=== PATIENT | male | born 1995 | race Caucasian/White ===

== ENCOUNTER → 2019-08-17 16:54 | Outpatient (CLI) | payer OTHER, SELFPAY ==
--- NOTE | 2019-08-17 | DI.MRI.S_ITS ---
PROCEDURE: MR KNEE LT WO CON INDICATIONS: PAIN IN LEFT KNEE TECHNIQUE: Noncontrast sagittal PD fast spin echo and T2 fast spin echo with fat saturation, sagittal 3-D FLASH with fat saturation; coronal T1 spin echo and PD fast spin echo with fat saturation, and axial PD fast spin echo with fat saturation through the knee. COMPARISON: None. FINDINGS: Image quality: Excellent. Menisci: There is intrasubstance degeneration involving the posterior horn of the medial meniscus, not extending to the articular surface. The lateral meniscus appears intact. Cruciate ligaments: Patient is status post anterior cruciate ligament repair. The ACL graft appears abnormal distally, consistent with full-thickness tear. There is mild widening of the femoral and tibial tunnels with tunnel cysts. The posterior cruciate ligament appears intact. Medial structures: Mild thickening of medial collateral ligament is likely sequelae of old injury. No acute MCL tear or sprain. The semimembranosus tendon insertions and meniscocapsular junction appear intact. Visualized portions of the pes anserinus tendons appear intact. No abnormal bursal fluid. Lateral structures: The lateral collateral ligament and the biceps femoris tendon appear intact. The popliteus tendon appears normal. Iliotibial band appears normal. Anterior structures: The quadriceps and patellar tendons appear intact. Patellar alignment is normal. No femoral trochlear dysplasia or ventral trochlear prominence. No edema in the infrapatellar fat pad. No localized arthrofibrosis (cyclops lesion) in the anterior intercondylar notch. Bones and cartilage: Sagittal images demonstrate no abnormal anterior tibial translation. No bone marrow contusions or fractures. Mild tricompartmental cartilage fibrillation with preserved cartilage thickness. Joint space: There is amorphous soft tissue in the anterior intercondylar notch. There is small knee joint effusion. No Ryan's cyst. No intra-articular bodies. Normal appearing synovial plicae are incidentally noted. IMPRESSION: 1. Abnormal appearance of distal ACL graft suspicious for full-thickness graft tear. 2. Amorphous soft tissue in the anterior intercondylar notch, likely related to the torn ACL graft. 3. 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 4. Small knee joint effusion. 5. Mild tricompartmental cartilage fibrillation. Dictated by: Atiya Gamez M.D. on 08/18/2019 at 9:59 Transcribed by: [email or web address] on 08/18/2019 at 10:18 Approved by: Atiya Gamez M.D. on 08/18/2019 at 18:39
== END ==
PROVIDERS: Referring Provider Preventive Medicine Public Health & General Preventive Medicine; Visit Provider Preventive Medicine Public Health & General Preventive Medicine
DX: M25.562 Pain in left knee (principal); M23.322 Other meniscus derangements, posterior horn of medial meniscus, left knee; M25.462 Effusion, left knee
CPT/HCPCS: 73721